=== PATIENT | male | born 1980 | race Caucasian/White ===

== ENCOUNTER 2017-07-05 21:37 | Emergency (ER) | payer SELFPAY ==
[~2017-07-05] VITALS: Ht 193 cm; Wt 109.3 kg
--- NOTE | 2017-07-05 21:40 | NUR ---
[facility]OME VINCENT FROM [facility], PT STATES HE TOOK ACID AND METH A COUPLE HOURS AGO AND STARTED FEELING BAD SO WALKED TO THE FIRE STATION AND ASKED THEM TO TAKE HIM TO THE ER. PT STATES HE HAS NO COMPLAINTS AT THIS TIME JUST STATES HE THINKS HE TOOK TO MUCH ACID, PT ON MONITOR, IN MD JERAMY MADE AWARE WILL CONTINUE TO MONITOR.
[2017-07-05] MEDS ORDERED: diphenhydrAMINE HCL 50 MG/ML VIAL ONE (22:00)
[2017-07-05] MEDS ORDERED: HALOPERIDOL LACTATE INJ 5 MG/ML VIAL ONE (22:00)
[2017-07-05] MEDS ORDERED: LORAZEPAM INJ 2 MG/ML VIAL ONE (22:01)
--- NOTE | 2017-07-05 22:05 | NUR ---
PT RAN OUT OF THE ER, SECURITY HELPED PATIENT BACK INTO ER, PT WALKED BACK INTO ER ON HIS OWN ACCORD, PT RESTRAINED PER MD ORDER, WILL CONTINUE TO MONITOR.
[2017-07-05] MEDS: LORAZEPAM INJ 2 MG/ML VIAL IM ONE (22:10)
[2017-07-05] MEDS: HALOPERIDOL LACTATE INJ 5 MG/ML VIAL IM ONE (22:10)
[2017-07-05] MEDS: diphenhydrAMINE HCL 50 MG/ML VIAL IM ONE (22:10)
[2017-07-05] MEDS: IV NS 0.9% 1,000 ML BAG IV ONE (22:15)
--- NOTE | 2017-07-05 22:15 | NUR ---
IV STARTED, BLOOD DRAWN AND SENT TO LAB, FLUIDS STARTED PER PA VERBAL ORDER
[2017-07-05 22:34] LABS: BASOPHILS % (AUTO) 0.2 % (0.0-2.0); EOSINOPHILS % (AUTO) 0.7 % (0.0-6.0); HEMATOCRIT 44 % (39-51); HEMOGLOBIN 14.9 g/dL (13.5-17.5); LYMPHOCYTES # (AUTO) 1.3 /CMM (0.8-4.8); LYMPHOCYTES % (AUTO) 17.8 % (20.0-44.0); MEAN CORPUSCULAR HGB CONC 34 g/dl (31.0-36.0); MEAN CORPUSCULAR VOLUME 85 fL (80-96); MONOCYTES # (AUTO) 0.5 /CMM (0.1-1.30); MONOCYTES % (AUTO) 6.8 % (2.0-12.0); NEUTROPHILS # (AUTO) 5.4 /CMM (1.8-8.9); NEUTROPHILS % (AUTO) 74.5 % (43.0-81.0); PLATELET COUNT (AUTO) 180 /CMM (150-450); RDW COEFFICIENT OF VARIATION 12.8 (11.5-15.0); RED BLOOD CELL COUNT(AUTO) 5.13 MIL/uL (4.5-6.0); WHITE BLOOD COUNT (AUTO) 7.3 K/uL (4.3-11.0)
[2017-07-05 22:37] LABS: CALCIUM, SERUM 9.2 mg/dL (8.5-10.1); CARBON DIOXIDE 25 mmol/L (21-32); CHLORIDE 103 mmol/L (98-107); CREATININE 1.6 mg/dL (0.6-1.3); GLUCOSE 108 mg/dL (74-106); POTASSIUM 4.4 mmol/L (3.5-5.1); SODIUM SERUM 140 mmol/L (136-145); UREA NITROGEN, BLOOD 19 mg/dL (7-18)
[2017-07-05 22:43] LABS: ACETAMINOPHEN 0 ug/ml (10-30); ALANINE AMINOTRANSFERASE 49 U/L (12-78); ALBUMIN 4.1 g/dL (3.4-5.0); ALCOHOL, BLOOD < 3 mg/dL (0-0); ALKALINE PHOSPHATASE 81 U/L (46-116); ASPARTATE AMINOTRANSFERASE 45 U/L (15-37); BILIRUBIN,DIRECT 0.1 mg/dL (0.0-0.2); BILIRUBIN,TOTAL 0.3 mg/dL (0.2-1.0); SALICYLATE 2.4 mg/dL (2.8-20.0); TOTAL PROTEIN, SERUM 8.3 g/dL (6.4-8.2)
--- NOTE | 2017-07-05 23:15 | NUR ---
PT SLEEPING, NAD NOTED, PT ON MONITOR, MD MADE AWARE WILL CONTINUE TO MONITOR.
--- NOTE | 2017-07-06 01:00 | NUR ---
PT SLEEPING IN NAD, PT ON MONITR, VSS, WILL CONTINUE TO MONITOR.
--- NOTE | 2017-07-06 04:17 | NUR ---
PT SLEEPING NAD NOTED AT THIS TIME VSS, PT ON MONITOR, WILL CONITNUE TO MONITOR.
--- NOTE | 2017-07-06 06:49 | NUR ---
PT A/OX4 BREATHING EFFORTLESSLY ON ROOM AIR, PT GIVEN ACI AND WALKED OUT OF THE ER WITH A STEADY GAIT, PT TOLD TO NOT DRIVE, PT VERBALZIED UNDERSTANDING
[2017-07-06 06:51] VITALS: BP 134/79
== END 2017-07-06 06:51 | disposition home or self-care (01) ==
LOC: ER 21:39
DX: F19.10 Other psychoactive substance abuse, uncomplicated (principal); F10.129 Alcohol abuse with intoxication, unspecified
CPT/HCPCS: 36415; 80048-TC; 80076-TC; 80305; 85025-TC; A4606; G0480; J1200; J1630; J2060; J7030; Z7610